=== PATIENT | male | born 1960 | race Caucasian/White ===

== ENCOUNTER 2016-03-18 08:42 | Outpatient (CLI) | payer BC ==
[~2016-03-18] VITALS: Ht 172.7 cm; Wt 104.5 kg
--- NOTE | ~2016-03-18 | HEMODYNAMI ---
PATIENT:DEISY GARCIA MEDICAL RECORD: [id number] : 64 LOCATION:[facility] ADMISSION DATE: 03/18/16 Generatedon:03/18/201611:16 Patient name: DEISY GARCIA Patient #: [id number] : 1960 Date of study: 03/18/2016 Page: Of Hemodynamic Procedure Report Patient Data Patient Demographics Procedure consent was obtained First Name: DEISY Gender: Male Last Name: JOSE : 1960 Patient #: [id number] Age: 55 year(s) Race: Unknown SSN: [id number] Additional ID: [id number] Contact details Address: [address] [place] [address] State: [place] [facility] [place] code: [address] Past Medical History Allergies Allergen Reaction Date Comments Reported Other allergy 03/18/2016 [facility] Admission Admission Data Admission Date: 03/18/2016 Admission Time: 8:42 Arrival Date: 03/18/2016 Arrival Time: 0:00 Admit Source: Other Insurance Payor: Private health insurance Height (in.): 68 BSA: 2.21 (m2) Height (cm.): 172.72 BMI: 36.49 (kg/m2) Weight (lbs.): 240 Weight (kg.): 108.86 Lab Results Lab Result Date: 03/18/2016 Lab Result Time: 0:00 Biochemistry Name Units Result Min Max BUN mg/dl 19 --(----)*- 7 18 Creatinine mg/dl 1.1 --(--*-)-- 0.6 1.3 CBC Name Units Result Min Max Hemoglobin g/dl 15.5 --(-*--)-- 13.5 17.5 Procedure Procedure Types Cath Procedure Diagnostic Procedure LHC LHC w/Coronaries Miscellaneous Procedures Moderate Sedation up to 15 minutes Procedure Description Procedure Date Procedure Date: 03/18/2016 Procedure Start Time: 11:03 Procedure End Time: 11:15 Procedure Staff Name Function Abraham Brown MD Performing Physician Jesus Talley RT Scrub Josy Black RN Nurse Rohith Wallace RT Owner Oral Surgeon Rosemary Wan RT Monitor Procedure Data Cath Procedure Fluoroscopy Diagnostic fluoroscopy Total fluoroscopy Time: 2.5 time: 2.5 min min Diagnostic fluoroscopy Total fluoroscopy dose: 325 dose: 325 mGy mGy Contrast Material Contrast Material Type Amount (ml) Isovue 300 72 Entry Location Entry Primary Successful Side Size Upsize Upsize Entry Closure Aldana ccessful Closure Location (Fr) 1 (Fr) 2 (Fr) Remarks Device Remarks Radial Right 6 Fr Mechanical TR band artery Short Compression Estimated blood loss: 10 ml Diagnostic catheters Device Type Used For End Catheter Placement Cordis Infinity 5Fr AR 2 Procedure MOD catheter Procedure Complications No complications Procedure Medications Medication Administration Route Dosage Oxygen NC 2 l/min Heparin Flush Bag added to field 2 bags (1000units/500ml NS) Lidocaine 2% added to field 20 Radial Cocktail added to field 1 syringe (Verapomil 2mg/Nitro 400mcg/Heparin 1500units) Versed I.V. 1 mg Fentanyl I.V. 50 mcg Radial Cocktail I.A. 1 syringe (Verapomil 2mg/Nitro 400mcg/Heparin 1500units) Versed I.V. 1 mg Fentanyl I.V. 50 mcg Versed I.V. 1 mg Fentanyl I.V. 50 mcg Hemodynamics Rest BSA: 2.21 (m2) HGB: 15.5 (g/dl) O2 Consumption: Estimated: 263.1 (ml/min) O2 Con sumption indexed: Estimated:119.05 (ml/min/m) Heart Rate: 70 (bpm) Snapshots Pre Cath Intra NCS Post Cath Vital Signs Time Heart Resp SPO2 NIBP Rhythm Pain Sedation Rate (ipm) (%) (mmHg) Status Level (bpm) 10:45:10 80 22 99 122/80(92) NSR 0 (11) 10(A) , No pain 10:49:22 73 16 100 127/85(97) NSR 0 (11) 10(A) , No pain 10:53:32 71 18 98 127/90(97) NSR 0 (11) 10(A) , No pain 10:57:44 67 20 96 106/76(87) NSR 0 (11) 10(A) , No pain 11:01:50 57 16 95 112/83(93) NSR 0 (11) 10(A) , No pain 11:05:59 52 16 95 108/64(74) NSR 0 (11) 9(A) , No pain 11:10:11 77 16 97 105/70(89) NSR 0 (11) 9(A) , No pain 11:14:21 66 15 99 105/67(92) NSR 0 (11) 9(A) , No pain Medications Time Medication Route Dose Verified Delivered Reason Notes Effectiveness by by 10:45:54 Oxygen NC 2 l/min Per physician 10:46:04 Heparin Flush added 2 bags used for Bag to procedure (1000units/500ml field NS) 10:46:10 Lidocaine 2% added 20ml used for to vial procedure field 10:46:21 Radial Cocktail added 1 used for (Verapomil to syringe procedure 2mg/Nitro field 400mcg/Heparin 1500units) 11:00:41 Versed I.V. 1 mg Abraham Josy for sedation Kevin Black RN 11:00:49 Fentanyl I.V. 50 mcg Abraham Josy for sedation Kevin Black RN 11:02:48 Versed I.V. 1 mg Abraham Josy for sedation Kevin Black RN 11:03:01 Fentanyl I.V. 50 mcg Abraham Josy for sedation Kevin Black RN 11:04:41 Radial Cocktail I.A. 1 Abraham Abraham for (Verapomil syringe Kevin Brown MD vasodilation 2mg/Nitro 400mcg/Heparin 1500units) 11:05:23 Versed I.V. 1 mg Abraham Josy for sedation Kevin Black RN 11:05:26 Fentanyl I.V. 50 mcg Abraham Josy for sedation Kevin Black RN Procedure Log Time Note 10:34:23 Rohith GEIGER(R) sent for patient. Start room use. 10:44:05 Vital chart was started 10:45:54 Oxygen 2 l/min NC was given by ; Per physician; 10:46:04 Heparin Flush Bag (1000units/500ml NS) 2 bags added to field was given by ; used for procedure; 10:46:10 Lidocaine 2% 20ml vial added to field was given by ; used for procedure; 10:46:21 Radial Cocktail (Verapomil 2mg/Nitro 400mcg/Heparin 1500units) 1 syringe added to field was given by ; used for procedure; 10::27 Arrival Date: 03/18/2016 12:00:00 AM 10:52:29 Admit Source: Other 10:52:33 Patient Height : 172.72 inches 10:52:38 Patient Weight : 108.86 lbs 10::46 Insurance Payor : Private health insurance 10:53:38 Lab Result : BUN 19 mg/dl ::38 Lab Result : Creatinine 1.1 mg/dl 10:53:38 Lab Result : Hemoglobin 15.5 g/dl 10:53:47 Diagnostic Cath Status : Elective 10:54:34 Time tracking: Regular hours 10:54:39 Plan of Care:Hemodynamics will remain stable., Cardiac rhythm will remain stable., Comfort level will be maintained., Respiratory function will remain adequate., Patient/ family verbilizes understanding of procedure., Procedure tolerated without complication., Recovers from procedure without complications.. 10:54:46 Patient received from Outpatients to [facility] Alert and oriented. Tansferred to table in Supine position. 10:54:48 Warm blankets applied, and ofelia hugger turned on for patient comfort. 10:54:49 Correct patient and procedure confirmed by team. 10:54:51 Signed procedure consent form obtained from patient. 10:54:52 ECG and BP/O2 sat monitors applied to patient. 10:54:53 Baseline sample Acquired. 10:54:58 Rhythm: sinus rhythm 10:54:59 Full Disclosure recording started 10:55:16 H&P Date Dictated: 03/17/2016 Within 30 days and on chart., H&P Addendum completed by physician on day of procedure. (MUST COMPLETE FOR ALL OUTPATIENTS). 10:55:19 Pre-procedure instructions explained to patient. 10:55:21 Family in waiting room. 10:55:24 Patient NPO since Midnight. 10:55:42 Patient allergic to Other allergyPCN 10:55:46 Is the patient allergic to Iodine/contrast media? No. 10:55:48 Is patient on blood thinner?Yes 10:55:51 ACC The patient was administered the following blood thiners within the last 24 hours: ACCPlavix 10:55:54 Patient diabetic? No. 10:55:59 Snore? Yes 10:56:01 Sleep apnea? No 10:56:18 IV patent on arrival in right forearm with 0.9% NaCl at [facility]. 10:56:26 Lab results completed and on chart. 10:56:29 Right Radial & Right Groin area was prepped with chlora-prep and draped in sterile fashion 10:56:31 Alarms reviewed by R. N. 10:56:31 Sharps counted by scrub and verified by R.N. 10:56:32 Physician paged 11:00:06 Physician arrived 11:00:07 --------ALL STOP TIME OUT------ 11:00:07 Final Timeout: patient, procedure, and site verified with staff and physician. All members of the team are in agreement. 11:00:10 Right Radial & Right Groin site verified by team. 11:00:14 Physical assessment completed. ASA score P 2 - A patient with mild systemic disease as per Abraham Brown MD. 11:00:18 Sedation plan: IV Moderate Sedation Versed, Fentanyl 11:00:41 Versed 1 mg I.V. was given by Josy Black RN; for sedation; 11:00:49 Fentanyl 50 mcg I.V. was given by Josy Black RN; for sedation; 11:01:55 Zero performed for pressure channel P1 11:02:48 Versed 1 mg I.V. was given by Josy Black RN; for sedation; 11:02:54 Use device set Radial Dx 11:03:01 Fentanyl 50 mcg I.V. was given by Josy Black RN; for sedation; 11:03:03 Procedure started. 11:03:11 Local anesthetic to right radial artery with Lidocaine 2% by Abraham Brown MD.INITIAL ACCESS ONLY 11:03:30 Acist Syringe opened to sterile field. 11:03:31 Cardinal Cath Pack opened to sterile field. 11:03:32 Bag Decanter opened to sterile field. 11:03:34 St Reginaldo 260cm J .035 wire opened to sterile field. 11:03:35 Acist Hand Control opened to sterile field. 11:03:36 Acist Manifold opened to sterile field. 11:03:37 Tegaderm 4 x 4 opened to sterile field. 11:04:25 A 6 Fr Short sheath was inserted into the Right Radial artery 11:04:41 Radial Cocktail (Verapomil 2mg/Nitro 400mcg/Heparin 1500units) 1 syringe I.A. was given by Abraham Brown MD; for vasodilation; 11:05:23 Versed 1 mg I.V. was given by Josy Black RN; for sedation; 11:05:26 Fentanyl 50 mcg I.V. was given by Josy Black RN; for sedation; 11:05:46 [employer] Launcher 6Fr EBU 3.5 guide catheter opened to sterile field. 11:06:16 LV angiography performed. 11:06:19 LV gram done using QUINTERO 11:06:24 EF : 50 % 11:06:55 LCA angiography performed. 11:09:29 Catheter removed. 11:09:38 A Moviepilotity 5Fr AR 2 MOD catheter was advanced over the wire and used for Procedure. 11:09:43 RCA angiography performed. 11:12:02 Catheter removed. 11:12:13 Terumo 6Fr Slender Glidesheath opened to sterile field. 11:12:13 IV Extension Set opened to sterile field. 11:12:14 Terumo TR Band Standard opened to sterile field. 11:12:44 Sheath removed intact; hemostasis achieved with Mechanical Compression to the Right Radial artery. 11:12:48 Procedure ended.(Physican Out) 11:13:47 Fluoroscopy time 02.50 minutes. 11:13:52 Fluoroscopy dose: 325 mGy 11:13:52 Flurop Dose total: 325 11:13:57 Contrast amount:Isovue 300 72ml. 11:13:59 Sharps counted by scrub and verified by R.N. 11:14:03 TR band inflated with 10cc of air. 11:14:05 Insertion/operative site no bleeding no hematoma. 11:14:07 Post Procedure Pulses reassessed and unchanged 11:14:18 Post-procedure physical assessment completed. ASA score P 2 - A patient with mild systemic disease as per Abraham Brown MD. 11:14:21 Post procedure rhythm: unchanged. 11:14:24 Estimated blood loss: 10 ml 11:14:27 Post procedure instruction explained to patient.Patient verbalizes understanding. 11:14:38 Procedure and supply charges have been captured, reviewed, submitted and are correct. 11:15:23 Procedure Complication : No complications 11:15:26 Vital chart was stopped 11:15:27 See physician's report for complete and final results. 11:15:33 Patient transfered to Outpatients with Stretcher. 11:15:36 Procedure ended. 11:15:36 Full Disclosure recording stopped 11:15:39 End room use (Document Last) Device Usage Item Name Manufacture Quantity Catalog Hospital Part Current Minimal Lot# / Number Charge Number Stock Stock Serial# Code Acist Acist 1 65589 [id number] 290958 284270 20 Syringe [employer] Cardinal Cardinal 1 [id number] 814611 08247 573821 5 Cath Pack Health Bag Microtek 1 2002S 021908 89216 928376 [address] St Reginaldo 1 160000 671787 606887 715412 30 260cm J .035 wire Acist Hand Acist 1 53557 033140 099392 726676 5 Control [employer] Inc Acist Acist 1 75607 192077 240367 771362 5 Manifold [employer] Inc Tegaderm 4 3M 1 1626W 635412 248669 599519 5 x 4 Medtronic Medtronic 1 [id number] 102788 84918 701570 3 Launcher 6Fr EBU 3.5 guide catheter Cordis Cardinal 1 [id number] 885429 5588[address] [employer] 5Fr AR 2 MOD catheter Terumo 6Fr Terumo 1 [id number] 056164 885853 593213 40 Slender Glidesheath IV Hospira 1 91341-46 092574 18748 617572 5 Extension Set Terumo TR Terumo 1 [id number] 250327 398715 958754 40 Band Standard Signature Audit [place] Stage Time Signature Unsigned Intra-Procedure 03/18/2016 Rosemary Wan 11:16:12 AM RT(R) Signatures Monitor : Rosemary Wan Signature : RT Date : Time : [facility] [address] [place] [address]
[2016-03-18 09:19] VITALS: BP 130/81; Ht 172.7 cm; Wt 104.5 kg
[2016-03-18] MEDS ORDERED: PLAVIX75 MG PO (09:29)
[2016-03-18 09:37] LABS: BASOPHILS 0.5 % (0.0-2.0); EOSINOPHILS 12.2 % (0-7); HEMATOCRIT 46.3 % (42.0-54.0); HEMOGLOBIN 15.5 g/dL (13.5-17.5); IMMATURE GRANULOCYTES 0.3 % (0-5); LYMPHOCYTES 34.2 % (15-50); MCH 30.4 pg (26.0-34.0); MCHC 33.5 g/dL (31.0-37.0); MCV 90.8 fL (80.0-100.0); MEAN PLATELET VOLUME 9.6 fL (7.4-10.4); MONOCYTES 8.3 % (2-11); NEUTROPHILS 44.5 % (40-80); PLATELET COUNT 190 10x3/uL (130-400); RDW 12.6 % (11.5-14.5); WBC 6.6 10x3/uL (4.8-10.8)
[2016-03-18 10:11] LABS: ANION GAP 13.8 mmol/L (8-16); CALCIUM 8.6 mg/dL (8.5-10.1); CARBON DIOXIDE 25.5 mmol/L (21.0-32.0); CREATININE - SERUM 1.1 mg/dL (0.6-1.3); POTASSIUM - SERUM 4.3 mmol/L (3.5-5.1)
--- NOTE | 2016-03-18 11:44 | NUR ---
HR 74 BP 96/53 CHEST PAIN IS DENIED. TR BAND TO R/WRIST CDI NO BLEEDING NO HEMATOMA NOTED. INSTRUCTED PATIENT TO KEEP RUE STRAIGHT NO BENDING OR FLEXING OF WRIST.
--- NOTE | 2016-03-18 12:15 | NUR ---
TR BAND TO R/WRIST CDI NO BLEEDING NO HEMATOMA NOTED. VSS WITH CHEST PAIN DENIED
--- NOTE | 2016-03-18 12:45 | NUR ---
1245 REPOSITIONED TO SITTING WITH HOB UP 30 DEGREES VSS TR BAND TO R/WRIST CDI NO BLEEDING NO HEMATOMA NOTED.
--- NOTE | 2016-03-18 13:10 | NUR ---
PIV REMOVED FROM LEFT ARM WITH DRESSING APPLIED. 4 CC AIR REMOVED FROM TR BAND WITH NO BLEEDING NO HEMATOMA NOTED.
--- NOTE | 2016-03-18 13:41 | NUR ---
TR BAND REMOVED FROM R/WRIST NO BLEEDING NO HEMATOMA NOTED.DRESSING APPLIED. DISCHARGE INSTRUCTIONS GONE OVER WITH PATIENT AND . LEFT VIA WC TO PARKING FOR TRANSPORT HOME
--- NOTE | 2016-04-01 08:46 | OP ---
PATIENT NAME: DEISY GARCIA MEDICAL RECORD: [id number] :64 LOCATION:[facility] ADMISSION DATE: SURGEON: CATHY ST MD DATE OF OPERATION: 03/18/2016 PROCEDURES: 1. Left heart catheterization. 2. Selective coronary angiography. 3. Left ventriculogram. PROCEDURE IN DETAIL: After informed consent was obtained and after detailed explanation of risks, benefits as well as alternative therapies, the patient elected to proceed with angiogram and heart catheterization. The right radial area was prepped and draped in normal sterile fashion. The right radial artery was cannulated via modified Seldinger technique with placement of 6-Setswana sheath. All catheters exchanged through this sheath. FINDINGS: Left ventriculogram was performed in standard 30-degree QUINTERO view, reveals good cardiac wall motion throughout all segments. Overall ejection fraction estimated 60%. SELECTIVE CORONARY ANGIOGRAPHY: Left main, left anterior descending, left circumflex, and right coronary artery are all smooth-walled vessels with no angiographic evidence of coronary artery disease. OVERALL IMPRESSION: No angiographic evidence of coronary artery disease. Normal left heart pressures. Normal left ventricular systolic function. Chest pain is noncardiac in etiology. No further cardiac workup needs to be ascertained. TRANSINT:[id number] Voice Confirmation ID: [id number] DOCUMENT ID: [id number] CATHY ST MD at 0846 CC: [id number] DICTATION DATE: 03/18/16 1116 PAINT SPRAYER SANDBLASTER: 03/18/16 1330 DEP CLI 03/18/16 [place] [id number]
== END 2016-03-18 13:49 | disposition home or self-care (01) ==
LOC: D.CATH 08:42
PROVIDERS: Internal Medicine Interventional Cardiology
DX: R07.89 Other chest pain (principal)